=== PATIENT | female | born 1940 | race Caucasian/White ===

== ENCOUNTER → 2016-10-31 | Outpatient (CLI) | payer MEDICARE, BC, OTHER ==
--- NOTE | 2016-11-01 08:41 | XR ---
EXAMINATION TYPE: XR chest 2V DATE OF EXAM: 10/31/2016 11:02 AM COMPARISON: NONE HISTORY: Cough TECHNIQUE: Frontal and lateral views of the chest are obtained. FINDINGS: There are prominent lung volumes. Interstitium is somewhat increased. Cardiac mediastinal silhouette, pulmonary vascularity and tim within normal limits accounting for patient rotation. No a irspace disease, pneumothorax, or pleural effusion. IMPRESSION: Findings suggest COPD, there may be interstitial lung disease, consider chest CT.
== END | disposition home or self-care (01) ==
LOC: RADXRYALE 10:46
PROVIDERS: ATTEND Internal Medicine
DX: R05 Cough (principal)
CPT/HCPCS: 71020

== ENCOUNTER → 2016-11-15 | Outpatient (CLI) | payer MEDICARE, BC, OTHER ==
[2016-11-15 07:42] LABS: Blood Urea Nitrogen 8 mg/dL (7-17); Non-African American GFR(MDRD) >60 (>60 ml/min/1.73 sqM)
--- NOTE | 2016-11-15 08:41 | CT ---
EXAMINATION TYPE: CT chest w con DATE OF EXAM: 11/15/2016 8:19 AM COMPARISON: CT abdomen 09/01/2010 HISTORY: 76-year-old female cough, COPD TECHNIQUE: Contiguous axial scanning of the chest after the administration of 100 mL of Omnipaque 300 . Coronal/sagittal reconstructions performed. CT DLP: 207.3mGycm. Automatic exposure control utilized for a dose reduction. FINDINGS: The heart is normal size without pericardial effusion. Coronary vessel calcifications are present and unremarkable for coronary artery disease. Mild atherosclerotic arch calcifications with conventional arch vessel branching anatomy. There is borderline to mildly dilated caliber to the right main pulmonary artery and 2.6 cm which may reflect underlying pulmonary artery hypertension. Some borderline to mildly enlarged mediastinal lymph nodes are present, measuring 1.1 cm in the AP wi ndow, 1.4 cm and the right hilum, 1 cm at the right tracheobronchial angle, and 9 mm in the precarina l region. Incidental calcified 9 mm right thyroid nodule. There is mild diffuse bronchial wall thickening and mild to moderate centrilobular emphysema. Biapica l pleural parenchymal scarring and some subpleural nodularity at the peripheral right base, axial curt ge 42 and 43 measuring up to 5 mm. No consolidation or pleural effusion. There are some reticular den sities in both lower lungs suggestive of interstitial scarring. Visualized upper abdomen shows no gross abnormality. Bones: Mild superior endplate compression deformity of T11 appears chronic when correlated with CT of 09/01/2010. Additional inferior endplate Schmorl's node of T9 and mild superior endplate compression deformity of T8 also probably chronic given the lack of any paravertebral soft tissue abnormality. IMPRESSION: 1. COPD with mild to moderate emphysema. 2. Possible underlying pulmonary arterial hypertension given borderline to mild dilatation of the rig ht main pulmonary artery. 3. Nonenlarged and borderline to mildly enlarged mediastinal and right hilar lymph nodes measuring up to 1.4 cm. These are probably reactive/post inflammatory and can be reassessed in 6 months to ensure stability. 4. A couple subpleural pulmonary nodules at the right base measuring up to 5 mm. 6, 12, and 24 month follow-up exams are recommended to ensure stability and a benign etiology. 5. Some interstitial scarring at the lung bases.
== END | disposition home or self-care (01) ==
LOC: RADCTMAIN 07:04
PROVIDERS: ATTEND Internal Medicine
DX: J43.9 Emphysema, unspecified (principal); I28.1 Aneurysm of pulmonary artery; R91.1 Solitary pulmonary nodule; J98.4 Other disorders of lung
CPT/HCPCS: 82565; 84520; 71260; 36415; Q9967

== ENCOUNTER → 2016-12-11 | Outpatient (CLI) | payer MEDICARE, BC, OTHER ==
--- NOTE | 2016-12-12 12:36 | XR ---
EXAMINATION TYPE: XR foot complete RT DATE OF EXAM: 12/11/2016 12:14 PM COMPARISON: NONE HISTORY: Pain and bruising lateral foot TECHNIQUE: Three views are submitted. FINDINGS: The osseous structures are intact and severe narrowing and hypertrophic change first MTP. Correlate f or bunion and severe osteoarthritis. Mild diffuse osteopenia.. There is no acute fracture or disloca tion. IMPRESSION: 1. No acute fracture or dislocation. If symptoms persist, follow-up exam in 7 to 10 days could be ob tained. 2. 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
== END ==
LOC: RADXRYALE 12:01
PROVIDERS: ATTEND Internal Medicine
DX: M19.071 Primary osteoarthritis, right ankle and foot (principal); M21.611 Bunion of right foot

== ENCOUNTER 2017-04-07 09:28 | Emergency (ER) | payer MEDICARE, OTHER ==
[2017-04-07 09:34] VITALS: RESP 20; TEMP 99
[2017-04-07] MEDS ORDERED: ONDANSETRON 4 MG/2 ML VIAL IVP STA (09:47)
[2017-04-07] MEDS ORDERED: MORPHINE SULFATE 4 MG/ML SYRINGE IV STA (09:47)
[2017-04-07] MEDS ORDERED: SODIUM CHLORIDE 0.9% 500 ML IV STA (09:47)
--- NOTE | 2017-04-07 09:52 | ED ---
General Adult HPI - General Chief complaint: Back Pain/Injury Stated complaint: back/rib pain Time Seen by Provider: 04/07/17 09:40 Source: patient, RN notes reviewed Mode of arrival: ambulatory Limitations: no limitations - History of Present Illness Initial comments: 76-year-old female presents emergency Department with chief complaint of back pain. Patient states her last few days she's had increase in back pain that starts from her mid back to her lower back. Patient does admit to chronic back pain in which she gets injections and takes pain medication for secondary degenerative disc disease. Patient states that she did more lawn and cleaning her house and took care of somebody but does not remember causing any significant injury. She states the pain seems different than usual. She states goes along her lower ribs and is worse with deep inspiration. She does have chronic shortness of breath secondary to COPD has been on increased steroids. Patient has fever, chills, nausea, vomiting diarrhea. She does admit to being slightly constipated and usually is from her pain medication. Patient denies any dysuria hematuria. She states pain is worse with movement. - Related Data Allergies Allergy/AdvReac Type Severity Reaction Status Date / Time levofloxacin [From Levaquin] Allergy Unknown Verified 04/07/17 10:44 Review of Systems ROS Statement: Those systems with pertinent positive or pertinent negative responses have been documented in the HPI. ROS Other: All systems not noted in ROS Statement are negative. Past Medical History Past Medical History: COPD Additional Past Medical History / Comment(s): DDD History of Any Multi-Drug Resistant Organisms: None Reported Additional Past Surgical History / Comment(s): cataracts removed Past Psychological History: No Psychological Hx Reported Smoking Status: Current every day smoker Past Alcohol Use History: None Reported Past Drug Use History: None Reported General Exam Limitations: no limitations General appearance: alert, in no apparent distress Head exam: Present: atraumatic, normocephalic, normal inspection Neck exam: Present: normal inspection, full ROM. Absent: tenderness, meningismus, lymphadenopathy Respiratory exam: Present: normal lung sounds bilaterally. Absent: respiratory distress, wheezes, rales, rhonchi, stridor, chest wall tenderness Cardiovascular Exam: Present: regular rate, normal rhythm, normal heart sounds. Absent: systolic murmur, diastolic murmur, rubs, gallop, clicks GI/Abdominal exam: Present: soft, normal bowel sounds. Absent: distended, tenderness, guarding, rebound, rigid Back exam: Present: full ROM, paraspinal tenderness. Absent: tenderness (Mild tenderness to the thoracic lumbar region patient reports the pain feels deeper than superficial), CVA tenderness (R), CVA tenderness (L), vertebral tenderness Neurological exam: Present: alert, oriented X3, CN II-XII intact Skin exam: Present: warm, dry, intact, normal color. Absent: rash Course Vital Signs 04/07/17 09:31 Temperature 99.0 F Pulse Rate 89 Respiratory 20 Rate Blood Pressure 194/91 O2 Sat by Pulse 98 Oximetry EKG Findings - EKG Comments: EKG Findings:: EKG performed at 10:24 sinus rhythm with PAC rate of 70 MO interval 156 QRS duration 90 QT/QTC 384/414 Medical Decision Making - Medical Decision Making 76-year-old female presented for back pain, rib pain. Patient's lab work revealed mild elevation her d-dimer CT does not show any evidence of PE. Patient's x-ray of the thoracic spine shows wedge compression fracture of T11. She states she has no history of this. Patient does currently take pain medications though she'll be referred to Dr. Franco her orthopedic back specialist. - Lab Data Result diagrams: 04/07/17 10:40 04/07/17 10:40 Lab Results 04/07/17 04/07/17 04/07/17 Range/Units 10:40 10:40 10:40 WBC 7.6 (3.8-10.6) k/uL RBC 4.46 (3.80-5.40) m/uL Hgb 13.5 (11.4-16.0) gm/dL Hct 40.5 (34.0-46.0) % MCV 90.9 (80.0-100.0) fL MCH 30.4 (25.0-35.0) pg MCHC 33.4 (31.0-37.0) g/dL RDW 13.5 (11.5-15.5) % Plt Count 209 (150-450) k/uL Neutrophils % 74 % Lymphocytes % 17 % Monocytes % 5 % Eosinophils % 2 % Basophils % 0 % Neutrophils # 5.6 (1.3-7.7) k/uL Lymphocytes # 1.3 (1.0-4.8) k/uL Monocytes # 0.4 (0-1.0) k/uL Eosinophils # 0.1 (0-0.7) k/uL Basophils # 0.0 (0-0.2) k/uL D-Dimer 0.87 H (<0.60) mg/L FEU Sodium 134 L (137-145) mmol/L Potassium 4.1 (3.5-5.1) mmol/L Chloride 104 (98-107) mmol/L Carbon Dioxide 22 (22-30) mmol/L Anion Gap 8 mmol/L BUN 7 (7-17) mg/dL Creatinine 0.46 L (0.52-1.04) mg/dL Est GFR (MDRD) Af Amer >60 (>60 ml/min/1.73 sqM) Est GFR (MDRD) Non-Af >60 (>60 ml/min/1.73 sqM) Glucose 92 (74-99) mg/dL Calcium 8.8 (8.4-10.2) mg/dL Total Bilirubin 0.3 (0.2-1.3) mg/dL AST 30 (14-36) U/L ALT 31 (9-52) U/L Alkaline Phosphatase 62 (38-126) U/L Troponin I (0.000-0.034) ng/mL Total Protein 6.1 L (6.3-8.2) g/dL Albumin 3.8 (3.5-5.0) g/dL Lipase 80 (23-300) U/L Urine Color Urine Appearance (Clear) Urine pH (5.0-8.0) Ur Specific [place] (1.001-1.035) Urine Protein (Negative) Urine Glucose (UA) (Negative) Urine Ketones (Negative) Urine Blood (Negative) Urine Nitrite (Negative) Urine Bilirubin (Negative) Urine Urobilinogen (<2.0) mg/dL Ur Leukocyte Esterase (Negative) 04/07/17 04/07/17 Range/Units 10:40 10:40 WBC (3.8-10.6) k/uL RBC (3.80-5.40) m/uL Hgb (11.4-16.0) gm/dL Hct (34.0-46.0) % MCV (80.0-100.0) fL MCH (25.0-35.0) pg MCHC (31.0-37.0) g/dL RDW (11.5-15.5) % Plt Count (150-450) k/uL Neutrophils % % Lymphocytes % % Monocytes % % Eosinophils % % Basophils % % Neutrophils # (1.3-7.7) k/uL Lymphocytes # (1.0-4.8) k/uL Monocytes # (0-1.0) k/uL Eosinophils # (0-0.7) k/uL Basophils # (0-0.2) k/uL D-Dimer (<0.60) mg/L FEU Sodium (137-145) mmol/L Potassium (3.5-5.1) mmol/L Chloride (98-107) mmol/L Carbon Dioxide (22-30) mmol/L Anion Gap mmol/L BUN (7-17) mg/dL Creatinine (0.52-1.04) mg/dL Est GFR (MDRD) Af Amer (>60 ml/min/1.73 sqM) Est GFR (MDRD) Non-Af (>60 ml/min/1.73 sqM) Glucose (74-99) mg/dL Calcium (8.4-10.2) mg/dL Total Bilirubin (0.2-1.3) mg/dL AST (14-36) U/L ALT (9-52) U/L Alkaline Phosphatase (38-126) U/L Troponin I <0.012 (0.000-0.034) ng/mL Total Protein (6.3-8.2) g/dL Albumin (3.5-5.0) g/dL Lipase (23-300) U/L Urine Color Light Yellow Urine Appearance Clear (Clear) Urine pH 7.0 (5.0-8.0) Ur Specific [place] 1.002 (1.001-1.035) Urine Protein Negative (Negative) Urine Glucose (UA) Negative (Negative) Urine Ketones Negative (Negative) Urine Blood Negative (Negative) Urine Nitrite Negative (Negative) Urine Bilirubin Negative (Negative) Urine Urobilinogen <2.0 (<2.0) mg/dL Ur Leukocyte Esterase Negative (Negative) Disposition Clinical Impression: Thoracic compression fracture Disposition: HOME SELF-CARE Condition: Stable Instructions: Vertebral Compression Fracture (ED) Additional Instructions: Please return to the Emergency Department if symptoms worsen or any other concerns. Referrals: Lizzeth Farris MD [Primary Care Provider] - 1-2 days Time of Disposition: 12:42
[2017-04-07 10:52] LABS: Appearance,Urine Clear (Clear); Bilirubin,Urine Negative (Negative); Glucose,Urine (UA) Negative (Negative); Ketones,Urine Negative (Negative); Leukocyte Esterase,Urine Negative (Negative); Nitrite,Urine Negative (Negative); Protein,Urine Negative (Negative); Specific Gravity,Urine 1.002 (1.001-1.035); UA Billing (MACRO vs. MICRO) CHEM; Urobilinogen,Urine <2.0 mg/dL (<2.0)
[2017-04-07 10:53] LABS: Basophils % (A) 0 %; CH 30.8; Eosinophils # (A) 0.1 k/uL (0-0.7); Eosinophils % (A) 2 %; HCT 40.5 % (34.0-46.0); HDW 2.31; HGB 13.5 gm/dL (11.4-16.0); Luc # (Auto) 0.13; Luc % (Auto) 2; Lymphocytes # (A) 1.3 k/uL (1.0-4.8); Lymphocytes % (A) 17 %; MCH 30.4 pg (25.0-35.0); MCHC 33.4 g/dL (31.0-37.0); MCV 90.9 fL (80.0-100.0); Mean Platelet Volume 7.5; Monocytes # (A) 0.4 k/uL (0-1.0); Monocytes % (A) 5 %; Neutrophils # (A) 5.6 k/uL (1.3-7.7); Neutrophils % (A) 74 %; RBC 4.46 m/uL (3.80-5.40); RDW 13.5 % (11.5-15.5); WBC 7.6 k/uL (3.8-10.6)
[2017-04-07 11:05] LABS: ALT 31 U/L (9-52); AST 30 U/L (14-36); Alkaline Phosphatase 62 U/L (38-126); Anion Gap 8 mmol/L; Blood Urea Nitrogen 7 mg/dL (7-17); Calcium 8.8 mg/dL (8.4-10.2); Carbon Dioxide 22 mmol/L (22-30); Chloride 104 mmol/L (98-107); Glucose 92 mg/dL (74-99); Non-African American GFR(MDRD) >60 (>60 ml/min/1.73 sqM); Potassium 4.1 mmol/L (3.5-5.1); Sodium 134 mmol/L (137-145); Total Bilirubin 0.3 mg/dL (0.2-1.3); Total Protein 6.1 g/dL (6.3-8.2)
--- NOTE | 2017-04-07 11:17 | XR ---
EXAMINATION TYPE: XR thoracic spine 2V , 3 VIEWS DATE OF EXAM ORDERED: 04/07/2017 HISTORY: Pain. COMPARISON: None. FINDINGS: There is diffuse osteopenia likely on the basis of osteoporosis. There is mild wedging of the T11 vertebral body. The age of this is not determined. 2 body height and alignment are otherwise unremarkable. This hypertrophic spondylosis within the mid dorsal spine. Paraspinal soft tissues are normal. The pedicles appear intact. IMPRESSION: 1. DIFFUSE OSTEOPENIA. 2. MILD WEDGE COMPRESSION FRACTURE T11. 3. DEGENERATIVE HYPERTROPHIC SPONDYLOSIS.
--- NOTE | 2017-04-07 11:18 | XR ---
EXAMINATION TYPE: XR KUB , 2 VIEWS DATE OF EXAM ORDERED: 04/07/2017 HISTORY: Pain. COMPARISON: None. FINDINGS: The lung bases are clear. The abdominal gas pattern is within normal limits. There is no evidence of obstruction or free air. N o unusual calcifications are seen. There is moderate fecal stasis on the right. IMPRESSION: 1. NO ACUTE INTRA-ABDOMINAL ABNORMALITY. 2. CONSTIPATION.
--- NOTE | 2017-04-07 11:19 | XR ---
EXAMINATION TYPE: XR chest 2V DATE OF EXAM: 04/07/2017 HISTORY: pain. REFERENCE: Previous study dated 10/31/2016. FINDINGS: Lung volumes are mildly prominent. There is some chronic interstitial change. There is no p neumonia or edema. The heart is not enlarged. Pleural spaces are clear. IMPRESSION: COPD.
[2017-04-07] MEDS ORDERED: RX INFO: IV CONTRAST WAS GIVEN 1 EACH MISC MISCELLANE PRN (11:31)
--- NOTE | 2017-04-07 12:35 | CT ---
EXAMINATION TYPE: CT chest angio for PE DATE OF EXAM: 04/07/2017 COMPARISON: NONE HISTORY: Mid back pain CT DLP: 180.1 mGycm Automated exposure control for dose reduction was used. CONTRAST: CT Chest for pulmonary embolism performed with with IV Contrast, patient injected with 63 mL of Omnip aque 350. FINDINGS: There is apical scarring bilaterally, worse on the left than the right. There are diffuse e mphysematous changes throughout the lungs. There is mild interstitial change at the lung bases. There is no significant axillary or internal mammary lymph nodes. There are shotty mediastinal lymph nodes. There are some right hilar lymph nodes which are not pathologically enlarged. There is no evidence of pulmonary embolus. The aorta is normal in caliber without evidence of dissect ion. The heart is mildly enlarged. There is no pleural or pericardial fluid. Visualized portions of the upper abdomen are unremarkable. There is minimal hypertrophic spondylosis within the spine. No bony destructive lesion is seen. IMPRESSION: 1. This examination is negative for pulmonary embolus. 2. Emphysematous change. 3. Biapical scarring, worse on the left than the right. 4. Cardiomegaly.
[2017-04-07 13:04] VITALS: BP 160/73; PULSE 73
== END 2017-04-07 13:04 | disposition home or self-care (01) ==
LOC: EC 09:28
DX: S22.080A Wedge compression fracture of T11-T12 vertebra, initial encounter for closed fracture (principal); R06.02 Shortness of breath; F17.200 Nicotine dependence, unspecified, uncomplicated; Z88.1 Allergy status to other antibiotic agents
CPT/HCPCS: 36415; 93005; 85379; 80053; 83690; 84484; 85025; 81003; 72070; 71020; 74000; 71275; 99284; 96374; 96375; 96361 ×2; J2270; Q9967; J2405

== ENCOUNTER → 2017-04-11 | Outpatient (CLI) | payer MEDICARE, OTHER ==
--- NOTE | 2017-04-11 14:22 | NM ---
EXAMINATION TYPE: NM bone scan whole body DATE OF EXAM: 04/11/2017 COMPARISON: CT chest 04/07/2017, thoracic spine series 04/07/2017, lumbar spine series 04/18/2016 HISTORY: Back pain Delayed whole-body scanning was performed following the injection of 26.8 mCi Tc 99m MDP. Images acq uired 3 hours post injection. TECHNIQUE: Anterior and posterior full body images bilateral oblique views of the thoracic and lumbar spine pain . Lateral views of the thoracic spine. FINDINGS: There is a focus of increased abnormal uptake involving the right lower rib cage compatible with prev ious fracture. There is a curvature of the thoracolumbar spine compatible with scoliotic curvature. Abnormal uptake involving the right mandible is nonspecific may been the basis of periodontal disease correlate clinically to exclude other etiologies. There is abnormal uptake faintly throughout the upper thoracic and lower cervical spine compatible wi th degenerative disc disease. There is a linear area of abnormal uptake at the approximate level of T 10 which could be related to compression fracture or severe degenerative disc disease. Abnormal uptake at L4-5 and L5-S1 likely is degenerative. Abnormal uptake involving the SI joints inf eriorly likely post arthritic. Abnormal uptake involving the knees and feet, wrists and hands, and shoulders likely arthritic. More intense area of abnormal uptake involving the left scapula could be posttraumatic. Correlate with x-r ay. IMPRESSION: 1. Multilevel areas of abnormal uptake throughout the lower cervical, thoracic and lower lumbar spine which appears to be degenerative. More linear pattern of uptake at the T10 level could be on the bas is of a compression deformity or fracture. Groins with the recent CT scan of the superior endplate co mpression deformity. 2. Abnormal uptake involving the right mandible nonspecific most likely on the basis of periodontal d isease. X-ray correlation could be obtained. 3. Abnormal uptake involving the left scapula likely post arthritic but appears somewhat diffuse in p attern. Correlate with x-ray.
== END | disposition home or self-care (01) ==
LOC: RADNMMAIN 10:43
PROVIDERS: ATTEND Physical Medicine & Rehabilitation
DX: M47.817 Spondylosis without myelopathy or radiculopathy, lumbosacral region (principal)
CPT/HCPCS: 78306; A9503

== ENCOUNTER → 2018-03-15 | Outpatient (CLI) | payer MEDICARE, OTHER ==
--- NOTE | 2018-03-15 10:20 | MR ---
EXAMINATION TYPE: MR shoulder RT wo con DATE OF EXAM: 03/15/2018 10:13 AM COMPARISON: NONE HISTORY: Rt. shoulder pain TECHNIQUE: Multiplanar, multisequence imaging of the right shoulder is performed without contrast. FINDINGS: The study suffers from motion artifact. There is no evidence of an os acromiale. There are moderate hypertrophic and inflammatory changes inv olving the right AC joint. The acromion is neutral. There is an incomplete full-thickness tear involving the posterior fibers of the supraspinatus tendon . There is no significant muscular retraction. Infraspinatus tendon and subscapularis tendons appear intact. There is some osseous edema involving the humeral head adjacent to the glenoid. The superior glenoid labrum appears swollen and has abnormal signal. Definite labral tear is not seen. There is a moderate joint effusion. The biceps tendon is not visualized within the biceps tendon groove or intra-articularly. IMPRESSION: 1. INCOMPLETE FULL-THICKNESS TEAR OF THE POSTERIOR FIBERS OF THE SUPRASPINATUS TENDON. 2. NONVISUALIZATION OF THE BICEPS TENDON WITHIN THE BICEPS TENDON GROOVE OR IN ITS INTRA-ARTICULAR CO URSE SUGGEST BICEPS TENDON RUPTURE WITH RETRACTION. 3. ABNORMAL APPEARING CYST SUPERIOR GLENOID LABRUM WHICH APPEARS SWOLLEN AND HAS ABNORMAL SIGNAL. 4. PROMINENT JOINT EFFUSION. 5. MODERATE INFLAMMATORY HYPERTROPHIC CHANGES WITHIN THE RIGHT AC JOINT.
== END | disposition home or self-care (01) ==
LOC: RADMRIMAIN 08:58
PROVIDERS: ATTEND Internal Medicine Rheumatology
DX: M75.111 Incomplete rotator cuff tear or rupture of right shoulder, not specified as traumatic (principal); M25.811 Other specified joint disorders, right shoulder

== ENCOUNTER → 2018-03-20 | Outpatient (CLI) | payer MEDICARE, OTHER ==
--- NOTE | 2018-03-20 13:18 | XR ---
Left RIBS with PA chest x-ray HISTORY: Left rib pain Frontal view of the chest 4 views of the left ribs correlated to prior chest x-ray 04/07/2017, 7 Cardiac mediastinal silhouette, pulmonary vascularity and tim are stable. Aorta is dense. No evident pneumothorax or pleural effusion. Arthropathy noted in the left shoulder. Interstitium is mildly inc reased. Prominent lung volume may be indicative of COPD. The bone mineralization is reduced. Cortical irregularity noted at the anterior aspect of one of the lower ribs, nondisplaced fracture difficult to exclude IMPRESSION: Bone scan may be of increased sensitivity as indicated, difficult to exclude nondisplaced fracture. No acute cardiopulmonary disease.
== END | disposition home or self-care (01) ==
LOC: RADXRYALE 09:09
PROVIDERS: ATTEND Internal Medicine
DX: R07.81 Pleurodynia (principal)

== ENCOUNTER → 2018-11-10 | Outpatient (CLI) | payer MEDICARE, OTHER ==
--- NOTE | 2018-11-10 16:35 | XR ---
EXAMINATION TYPE: XR thoracic spine complete DATE OF EXAM: 11/10/2018 CLINICAL HISTORY: Stabbing pain for 4 days. TECHNIQUE: Frontal, lateral, and swimmer's view of thoracic spine are obtained. COMPARISON: Thoracic spine x-ray April 07, 2017. FINDINGS: Osseous structures are demineralized Thoracic spine show slight scoliotic curvature without evidence of acute fracture or dislocation. Mild multilevel height loss is present in the vertebra mi ld to moderate multilevel disc space narrowing is seen. Visualized ribs are intact bilaterally. IMPRESSION: No acute fracture or dislocation is seen in the thoracic spine. No significant change fro m prior study 2016.
== END | disposition home or self-care (01) ==
LOC: RADXRYALE 15:27
PROVIDERS: ATTEND Internal Medicine
DX: M54.6 Pain in thoracic spine (principal)
CPT/HCPCS: 72072

== ENCOUNTER → 2018-11-20 | Outpatient (CLI) | payer MEDICARE, OTHER ==
[2018-11-20 14:26] LABS: Blood Urea Nitrogen 11 mg/dL (7-17)
--- NOTE | 2018-11-20 14:59 | CT ---
EXAMINATION TYPE: CT chest w con DATE OF EXAM: 11/20/2018 COMPARISON: 11/15/2016 and 04/07/2017 HISTORY: COPD. Cough. Follow-up for pulmonary nodules and lymph nodes. Centrilobular emphysema. CT DLP: 246.4 mGycm. Automated Exposure Control for Dose Reduction was Utilized. TECHNIQUE: CT scan of the thorax is performed following with IV Contrast, patient injected with 100 mL of Isovue 300. FINDINGS: LUNGS: There is biapical pleural parenchymal scarring noted. Mild to moderate centrilobular emphysema is seen most pronounced in the lung apices. The previously seen diffuse bronchial wall thickening is less conspicuous on today's exam. No sizable pulmonary nodules persist. MEDIASTINUM: The previously noted 1.4 cm short axis right hilar lymph node now measures 1.2 cm and is likely reactive. The aorticopulmonary window lymph node that was enlarged on the exam of 11/15/2016 i s no longer enlarged. The main pulmonary artery is upper limits of normal measuring 2.9 cm in the rig ht main pulmonary artery is enlarged measuring 2.6 cm. Left main pulmonary artery is also enlarged me asuring 2.5 cm. Pulmonary arterial hypertension is suggested. Moderate coronary artery calcifications are seen. No pericardial effusion is seen. OTHER: There is a nonunited fracture deformities of the fifth rib on the right. And healed fractures of the lateral margins of ribs 3 and 4 on the right. Mild multilevel degenerative changes of the spin e are seen. Superior endplate compression deformity of T11 is unchanged from the prior. Slight compre ssion deformity of T8 is also unchanged from the prior. IMPRESSION: 1. Mild to moderate centrilobular emphysema has not progressed from the prior of 11/15/2016 radiograph ically. 2. The subpleural less than 5 mm pulmonary nodule seen on the prior are no longer evident and may hav e related to atelectasis. No suspicious pulmonary nodules or masses on today's examination. 3. Improved caliber of the previously seen enlarged mediastinal lymph nodes with only 1 mildly enlarg ed mediastinal lymph node remaining, likely reactive. 4. Again there is mild enlargement of the right and left main pulmonary artery suggesting a component of underlying pulmonary arterial hypertension.
== END | disposition home or self-care (01) ==
LOC: RADCTMAIN 13:49
PROVIDERS: ATTEND Internal Medicine
DX: J43.2 Centrilobular emphysema (principal); J98.11 Atelectasis; I28.8 Other diseases of pulmonary vessels
CPT/HCPCS: 82565; 84520; 71260; 36415; Q9967

== ENCOUNTER → 2018-12-19 | Outpatient (CLI) | payer MEDICARE, OTHER ==
--- NOTE | 2018-12-19 14:40 | NM ---
EXAMINATION TYPE: NM bone scan whole body DATE OF EXAM: 12/19/2018 COMPARISON: Bone scan 04/11/2017, outside x-rays 12/18/2018 HISTORY: Pain Delayed whole-body scanning was performed following the injection of 25.6 mCi Tc 99m MDP. Images acq uired 3.5 hours post injection. FINDINGS: There is intense abnormal uptake in the level of the mid thoracic spine which corresponds t o a mild compression deformity on x-ray. Mild increased uptake throughout the remaining portion of th e thoracic and cervical spine noted which is nonspecific but most typical of post degenerative disc d isease changes. Abnormal uptake involving the knees and shoulders likely post arthritic. There is a more focal intens e abnormal uptake involving the left glenoid for which x-ray correlation suggested. Abnormal uptake involving the hands and wrist likely post arthritic. IMPRESSION: 1. Intense abnormal uptake in the midthoracic spine does correspond to a compression deformity seen b y previous x-ray correlate for compression fracture. Otherwise consider metastases. 2. Residual mild uptake throughout the thoracic, cervical and lumbar spine is most likely degenerativ e. 3. Intense abnormal uptake involving the left glenoid. X-ray correlation is recommended.
== END | disposition home or self-care (01) ==
LOC: RADNMMAIN 10:15
PROVIDERS: ATTEND Physical Medicine & Rehabilitation
DX: R94.8 Abnormal results of function studies of other organs and systems (principal); M48.54XD Collapsed vertebra, not elsewhere classified, thoracic region, subsequent encounter for fracture with routine healing; M47.814 Spondylosis without myelopathy or radiculopathy, thoracic region; M41.25 Other idiopathic scoliosis, thoracolumbar region
CPT/HCPCS: 78306; A9503

== ENCOUNTER → 2019-02-06 | Outpatient (CLI) | payer MEDICARE, OTHER ==
[2019-02-06 11:32] LABS: Appearance,Urine Clear (Clear); Bilirubin,Urine Negative (Negative); Blood,Urine Negative (Negative); Color,Urine Yellow; Glucose,Urine (UA) Negative (Negative); Ketones,Urine Negative (Negative); Leukocyte Esterase,Urine Negative (Negative); Nitrite,Urine Negative (Negative); PH, Urine 7.5 (5.0-8.0); Protein,Urine Negative (Negative); Specific Gravity,Urine 1.016 (1.001-1.035); Urobilinogen,Urine <2.0 mg/dL (<2.0)
--- NOTE | 2019-02-06 11:40 | XR ---
EXAMINATION TYPE: XR chest 2V DATE OF EXAM: 02/06/2019 COMPARISON: 08/09/2017 TECHNIQUE: PA and lateral views submitted. HISTORY: Pain FINDINGS: The lungs are clear and there is no pneumothorax, pleural effusion, or focal pneumonia. Hyperinflat ion suggests COPD. Atherosclerotic change aorta. Diffuse osteopenia and arthropathy of the shoulders. Biapical pleural thickening. Degenerative changes of the spine. IMPRESSION: 1. No acute process. Correlate for COPD.
[2019-02-06 11:51] LABS: INR 0.9 (<1.2); Partial Thromboplastin Time 22.3 sec (22.0-30.0); Prothrombin Time 9.5 sec (9.0-12.0)
[2019-02-06 11:59] LABS: Anion Gap 6 mmol/L; Blood Urea Nitrogen 10 mg/dL (7-17); Calcium 9.3 mg/dL (8.4-10.2); Carbon Dioxide 29 mmol/L (22-30); Chloride 102 mmol/L (98-107); Glucose 97 mg/dL (74-99); Potassium 4.2 mmol/L (3.5-5.1); Sodium 137 mmol/L (137-145)
[2019-02-06 12:01] LABS: Basophils # (A) 0.1 k/uL (0-0.2); Basophils % (A) 0 %; Eosinophils # (A) 0.1 k/uL (0-0.7); Eosinophils % (A) 1 %; HCT 43.1 % (34.0-46.0); HGB 13.5 gm/dL (11.4-16.0); Lymphocytes # (A) 1.8 k/uL (1.0-4.8); Lymphocytes % (A) 15 %; MCH 28.2 pg (25.0-35.0); MCHC 31.4 g/dL (31.0-37.0); MCV 89.7 fL (80.0-100.0); Mean Platelet Volume 7.6; Monocytes # (A) 0.6 k/uL (0-1.0); Monocytes % (A) 5 %; Neutrophils # (A) 9.1 k/uL (1.3-7.7); Neutrophils % (A) 77 %; Platelet Count 300 k/uL (150-450); RDW 13.7 % (11.5-15.5); WBC 11.7 k/uL (3.8-10.6)
== END ==
LOC: LABPAT 10:15
PROVIDERS: ATTEND Orthopaedic Surgery Orthopaedic Surgery of the Spine
DX: Z01.818 Encounter for other preprocedural examination (principal); Z01.812 Encounter for preprocedural laboratory examination; M48.50XA Collapsed vertebra, not elsewhere classified, site unspecified, initial encounter for fracture
CPT/HCPCS: 36415; 71046; 80048; 81003; 85025; 85610; 85730; 86850; 86900; 86901

== ENCOUNTER 2019-02-11 10:33 | Day surgery (SDC) | payer MEDICARE, OTHER ==
[2019-02-06 13:25] VITALS: BMI 24.1
[~2019-02-11 10:33] MED LIST: BACITRACIN 50,000 UNIT, POLYMYXIN B 500,000 UNIT in SODIUM CHLORIDE 0.9% IRRIGATIO 1,00... IRRIGATION ONE; LACTATED RINGERS 1,000 ML IV SCH; LIDOCAINE 1% 20 ML VIAL (10MG/ML) FOR IV START INTRADERMA PRN; ONDANSETRON 4 MG/2 ML VIAL IVP ONE; ceFAZolin IN SWFI 2 GM/20 ML SYRINGE IVP ONE; fentaNYL (PF) 50 MCG/ML 2 ML AMP IV PRN
[2019-02-11 11:19] VITALS: RESP 18
[2019-02-11] MEDS ORDERED: GLYCOPYRROLATE 0.2 MG/ML 2 ML VIAL ONE (14:49)
[2019-02-11] MEDS ORDERED: PROPOFOL 10 MG/ML 20 ML VIAL IV ONE (14:49)
[2019-02-11] MEDS ORDERED: SUCCINYLCHOLINE CHLORIDE 100 MG/5 ML SYR IV ONE (14:49)
[2019-02-11] MEDS ORDERED: MIDAZOLAM 2 MG/2 ML VIAL ONE (14:49)
[2019-02-11] MEDS ORDERED: PHENYLEPHRINE-0.9% NACL SYG 1 MG/10 ML SYRINGE ONE (14:49)
[2019-02-11] MEDS ORDERED: ePHEDrine SULFATE/0.9% NACL/PF 50 MG/5 ML SYRINGE IV ONE (14:49)
[2019-02-11] MEDS ORDERED: fentaNYL (PF) 50 MCG/ML 2 ML AMP ONE (14:49)
[2019-02-11] MEDS ORDERED: LIDOCAINE 0.5%-EPI 1:200,000 50 ML VIAL SQ ONE (15:35)
[2019-02-11] MEDS ORDERED: BENZOCAINE/MENTHOL LOZENG 1 EACH LOZENGE MUCOUS MEM PRN (16:09)
[2019-02-11] MEDS ORDERED: HYDROmorphone 0.5 MG/0.5 ML SYRINGE IVP PRN (16:09)
[2019-02-11] MEDS ORDERED: LACTATED RINGERS 1,000 ML IV ONE (16:09)
[2019-02-11] MEDS ORDERED: IBUPROFEN 600 MG TAB PO PRN (16:10)
[2019-02-11] MEDS ORDERED: ONDANSETRON 4 MG/2 ML VIAL IVP PRN (16:10)
[2019-02-11] MEDS ORDERED: HYDROcodone/APAP 5-325MG 1 EACH TAB PO PRN (16:10)
[2019-02-11] MEDS ORDERED: KETOROLAC 30 MG/ML 1 ML VIAL IVP PRN (16:10)
[2019-02-11] MEDS ORDERED: CANNABIDIOL PO PRN (16:12)
[2019-02-11] MEDS ORDERED: SODIUM CHLORIDE 0.9% 1,000 ML IV SCH (16:15)
--- NOTE | 2019-02-11 16:18 | P.OP ---
Date of Procedure: 02/11/19 Preoperative Diagnosis: T5 osteoporotic compression fracture, thoracic back pain, failed conservative treatment, progression of compression fracture deformity T5 Postoperative Diagnosis: Same Anesthesia: GETA Pathology: other (T5 vertebral body to pathology) Condition: stable Disposition: PACU Description of Procedure: BRIEF OPERATIVE NOTE Preoperative Diagnosis: Vertebral compression fracture at T5, T5 osteoporotic compression fracture, thoracic back pain, failed conservative treatment, progression of compression fracture deformity T5 Postoperative Diagnosis: Same Procedure: Kyphoplasty of T5 Vertebral body biopsy of T5 Use of biplanar fluoroscopic guidance Surgeon: Dr. Riddle Airplane Navigator: Bjorn Li is present throughout the entire the case persistence during positioning, dissection, exposure, visualization, and all crucial elements of the case as well as closure. Anesthesia: General anesthesia Estimated blood loss: Less than 10 mL Specimen: Vertebral body biopsy sent to pathology in formalin Complications: None apparent Components implanted: Bone cement Disposition: To recovery room in good stable condition. OPERATIVE INDICATIONS The patient has been having issues in their back ever since sustaining an injury. She has been having pain in her mid back and upper back over the past 3 months. She had been through conservative treatment and bracing without any relief. She is found have multiple compression deformities most of which were chronic but T5 appeared to be subacute and continues to give her symptoms. The patient has been through conservative treatment. They attempted conservative care with bracing however they're not having any benefit despite brace use. They continue to have significant pain and debility due to their fracture. We discussed various treatment options including surgery, and the patient wishes to proceed with surgery We discussed the risk, patient's alternatives and benefits of surgery including but not limited to, risk of bleeding risk of infection, risk of need for further surgery, risk of decreased, loss of motion, loss of function, cement extravasation, nerve damage, paralysis, heart attack, blindness and . OPERATIVE SUMMARY After discussing all the risks, patient alternatives and benefits at length, the patient elected to proceed with surgical intervention, signed informed consent, and presented for their procedure. The patient was seen and examined in the preoperative holding area and the surgical site was marked. The patient was given antibiotics and brought to the operating room. The patient was sedated and intubated by anesthesia in standard fashion. The patient was positioned on to the operating room table in a prone position on the appropriate well-padded and well molded bilateral chest rolls. We were careful to pad any bony prominences and pressure points. We were careful to maintain the patient's cervical spine and good neutral alignment and position throughout. We used 2 C-arm machines to establish biplanar fluoroscopic guidance in AP and lateral positions. We were able to localize the fractures appropriately. We counted up from L5 with C-arm guidance and continue to identify vertebral body sequentially until identifying the T5 vertebral body appropriately. The patient was prepped and draped in a normal standard fashion. An appropriate timeout and keystone protocol performed. We were able to proceed with the surgery. The local wound area was infiltrated with local anesthetic. An incision was made over the lateral aspect of the pedicle after positively establishing the appropriate vertebrae with the fracture., over the appropriate levels with a small 2 mm stab incision. Intraoperative fluoroscopy was taken which showed a marker at the appropriate level at T5. With the appropriate level positively confirmed, I was able to position a sharp trocar over the lateral aspect of the pedicle. As able to advance the trocar into the pedicle and into the posterior aspect of vertebral body being careful to avoid penetration cephalad caudad or medially. The trocar was placed appropriately into the posterior aspect of vertebral body at the appropriate levels. This was confirmed with C-arm guidance. With the trocar intact I was then able to take a bone biopsy with a biopsy punch or a bony drill. The biopsy specimen was passed off to be sent to pathology in formalin. Note was made of significantly thin and frail bone. I was then able to place the kyphoplasty balloon within the vertebral body. The position was checked on C-arm. I was able to inflate the balloon under low pressure and visualization with C-arm. The balloon was well enclosed within the vertebral body. The cement was prepared. With the cement at appropriate working condition the balloons were deflated and removed. I was able to place bony cement with trocar with the cement delivery device under low pressure. It had good fill within the vertebral body. There is no evidence of any extravasation of the cement posteriorly toward the canal. The cement had good spread within the vertebral body itself. The cement was well contained at the appropriate levels. The cement was allowed to cure appropriately. The trochars removed and final images were taken on C-arm. This showed the cement at the appropriate level of L5. We were able to proceed with closure. The wound was cleaned and dried and dressed with the appropriate dressing. The drapes were broken down. The patient was gently rolled back onto their hospital bed being careful to maintain their cervical spine and good neutral alignment and position. They were woken up by anesthesia, extubated, and brought to the recovery room in good stable condition. The patient will be admitted to the hospital for observation and for appropriate postoperative care, medical management and monitoring. We will continue to follow them closely about the postoperative course.
[2019-02-11 16:25] VITALS: TEMP 97.1
[2019-02-11 18:20] VITALS: BP 116/69; PULSE 71
[2019-02-12] MEDS ORDERED: ceFAZolin IN SWFI 2 GM/20 ML SYRINGE IVP SCH
[2019-02-12] MEDS ORDERED: NON-FORMULARY DRUG (Benazepril Hcl [Lotensin] 20 MG) PO SCH (09:00)
[2019-02-12] MEDS ORDERED: amLODIPine 10 MG TAB PO SCH (09:00)
[2019-02-12] MEDS ORDERED: ASPIRIN 81 MG PO SCH (09:00)
--- NOTE | 2019-02-12 10:10 | FL ---
Fluoroscopy HISTORY: Kyphoplasty 68 seconds fluoroscopy time supplied to the referring clinician. 4 intraoperative C-arm images docum ent the procedure. See dictated report from orthopedic surgery.
--- NOTE | 2019-02-12 10:19 | XR ---
Thoracic spine HISTORY: Kyphoplasty 4 intraoperative C-arm images document the procedure.
== END 2019-02-11 18:20 | disposition home or self-care (01) ==
LOC: OR 10:33
PROVIDERS: ATTEND Orthopaedic Surgery Orthopaedic Surgery of the Spine
DX: M48.54XA Collapsed vertebra, not elsewhere classified, thoracic region, initial encounter for fracture (principal); I10 Essential (primary) hypertension; H91.90 Unspecified hearing loss, unspecified ear; F17.210 Nicotine dependence, cigarettes, uncomplicated; R26.81 Unsteadiness on feet; M47.817 Spondylosis without myelopathy or radiculopathy, lumbosacral region; Z82.49 Family history of ischemic heart disease and other diseases of the circulatory system; R00.2 Palpitations; R06.02 Shortness of breath; Z97.3 Presence of spectacles and contact lenses; Z79.82 Long term (current) use of aspirin; Z79.899 Other long term (current) drug therapy; Z88.5 Allergy status to narcotic agent; Z91.040 Latex allergy status; Z88.1 Allergy status to other antibiotic agents
CPT/HCPCS: 22513; 88307; 88311; 72020; C1713; J2250; J2405; J3010; J1885; J2370; J0330; J2704; J0690; 86850; 86900; 86901

== ENCOUNTER → 2019-07-15 | Outpatient (CLI) | payer MEDICARE, OTHER ==
--- NOTE | 2019-07-15 13:55 | XR ---
EXAMINATION TYPE: XR ribs LT w pa chest xray DATE OF EXAM: 07/15/2019 COMPARISON: NONE HISTORY: Left rib pain TECHNIQUE: PA view the chest and 4 views of left ribs submitted FINDINGS: Calcification the right paratracheal region likely related to previous vertebroplasty. Line ar changes at the lung bases most typical of atelectasis. Atherosclerotic change of the aorta. Severe arthropathy of the left shoulder. Visualized rib cage is intact. IMPRESSION: 1. No acute displaced rib fracture
== END | disposition home or self-care (01) ==
LOC: RADXRYALE 13:20
PROVIDERS: ATTEND Internal Medicine
DX: R07.81 Pleurodynia (principal)

== ENCOUNTER → 2020-06-28 | Outpatient (CLI) | payer MEDICARE, OTHER ==
--- NOTE | 2020-06-28 19:07 | XR ---
EXAMINATION TYPE: XR shoulder complete LT DATE OF EXAM: 06/28/2020 CLINICAL HISTORY: Left shoulder pain. Increased chronic pain after fall. TECHNIQUE: 2 views of the left shoulder are obtained. COMPARISON: CT chest 11/20/2018. FINDINGS: Decreased osseous mineralization. There is no acute fracture/dislocation evident in the le ft shoulder. There is severe glenohumeral joint space narrowing, with bony remodeling of the humeral head, degenerative spurring. Acromioclavicular degenerative change. The visualized ribs demonstrate no evidence of displaced fracture. IMPRESSION: 1. No acute fracture or dislocation in the left shoulder. 2. Significant glenohumeral and acromioclavicular degenerative change. 3. Decreased osseous mineralization.
--- NOTE | 2020-06-28 19:08 | XR ---
EXAMINATION TYPE: XR knee limited LT DATE OF EXAM: 06/28/2020 CLINICAL HISTORY: Left knee pain. Increased chronic pain after fall. TECHNIQUE: AP and lateral views of the left knee are obtained. COMPARISON: None. FINDINGS: Decreased osseous mineralization. There is no acute fracture/dislocation evident in left k nee. Medial compartment joint space narrowing. Medial compartment and patellofemoral compartment dege nerative spurring. Spurring of the tibial spines. The overlying soft tissue appears unremarkable. IMPRESSION: 1. No acute fracture or dislocation in the left knee. 2. Decreased osseous mineralization. 3. Bicompartmental degenerative change.
== END | disposition home or self-care (01) ==
LOC: RADXRYALE 14:57
PROVIDERS: ATTEND Internal Medicine
DX: M19.012 Primary osteoarthritis, left shoulder (principal); M17.12 Unilateral primary osteoarthritis, left knee

== ENCOUNTER → 2020-09-12 | Outpatient (CLI) | payer MEDICARE, OTHER ==
--- NOTE | 2020-09-12 18:04 | XR ---
Right RIBS HISTORY: Trauma and pain 5 views of the right ribs correlated to chest x-ray 02/06/2019, left RIBS with chest x-ray 07/15/2019 Vertebroplasty change again noted at approximately the T5 level. There is a spinal curvature present. Additional compression deformities are noted in the thoracic spine. Bone mineralization is reduced, the exam is overpenetrated which limits sensitivity. Apical pleural thickening is again noted on the right. No evident displaced rib fracture. There is some scarring present at the right costophrenic angle lev el. IMPRESSION: Thoracic compression deformities of indeterminate age. Limitations as above, bone scan co uld be performed for increased sensitivity as indicated.
== END | disposition home or self-care (01) ==
LOC: RADXRYALE 15:16
PROVIDERS: ATTEND Internal Medicine
DX: G95.29 Other cord compression (principal)

== ENCOUNTER → 2021-08-14 | Outpatient (CLI) | payer MEDICARE, OTHER ==
--- NOTE | 2021-08-14 16:04 | BD ---
EXAMINATION TYPE: Axial Bone Density DATE OF EXAM: 08/14/2021 COMPARISON: NONE CLINICAL HISTORY: Height: 5 FT 3 IN Weight: 129 FRAX RISK QUESTIONS: Alcohol (3 or more units per day): NO Family History (Parent hip fracture): NO Glucocorticoids (More than 3mos): UNSURE (Ex: prednisone, prednisolone, methylprednisolone, dexamethasone, and hydrocortisone). History of Fracture in Adulthood: YES SPONTANEOUS Secondary Osteoporosis: 1. Type 1 Diabetes: NO 2. Hyperthyroidism: NO 3. Menopause before 45: YES 4. Malnutrition: NO 5. Chronic liver disease: NO Rheumatoid Arthritis: NO Current Tobacco Use: YES RISK FACTORS HISTORY OF: Spine Fracture: STATES SPONTANEOUS FXS IN SPINE Surgery to Spine/Hip(right/left)/Wrist (right/left): TSPINE When: 2018 Family History of Osteoporosis: UNKNOWN Active: NO Diet low in dairy products/other sources of calcium: NO Postmenopausal woman: YES Take estrogen and/or progesterone medications: NO Lost more than 2 inches in height since high school: YES Frequent falls: NO Poor Health: GOOD Hyperparathyroidism: NO Adrenal Insufficiency: NO MEDICATIONS: Additional Medications:NORCO, NORVASC, ASPIRIN, Additional History: EXAM MEASUREMENTS: Bone mineral densitometry was performed using the iCAD System. Bone mineral density as measured about the Lumbar spine is: ----- L1-L4(G/cm2): 0.874 T Score Values are as follows: ----- L2: -3.2 ----- L3: -2.0 ----- L4: -2.7 ----- L1-L4: -2.5 LAST ONE DONE LONG AGO Bone mineral density about the R hip (g/cm2): 0.633 Bone mineral density about the L hip (g/cm2): 0.676 T Score values are as follows: -----R Neck: -2.9 -----L Neck: -2.6 -----R Total: -3.4 -----L Total: -3.4 LAST ONE DONE LONG AGO IMPRESSION: Osteoporosis (T Score less than -2.5). There is increased fracture risk and therapy is usually indicated based on age. Re-Screen 1-2 years. NOTE: T-SCORE=SD OF THE YOUNG ADULT MEAN.
== END | disposition home or self-care (01) ==
LOC: RADBDWWP 10:20
PROVIDERS: ATTEND Internal Medicine Rheumatology
DX: M81.0 Age-related osteoporosis without current pathological fracture (principal)
CPT/HCPCS: 77080

== ENCOUNTER → 2021-08-14 | Outpatient (CLI) | payer MEDICARE, OTHER ==
--- NOTE | 2021-08-14 11:27 | US ---
EXAMINATION TYPE: US pelvic complete DATE OF EXAM: 08/14/2021 COMPARISON: NONE CLINICAL HISTORY: R10.84 Generalized abdominal pain. TECHNIQUE: Transabdominal (TA). Date of LMP: postmenopausal, no HRT EXAM MEASUREMENTS: Uterus: 6.8 x 2.7 x 3.9 cm Endometrial Stripe: 0.4 cm Right Ovary: not identified Left Ovary: not identified 1. Uterus: Retroverted wnl 2. Endometrium: wnl 3. Right Ovary: not identified 4. Left Ovary: not identified 5. Bilateral Adnexa: wnl 6. Posterior cul-de-sac: no free fluid Extensive bowel noted in bilateral adnexal regions. Patient refused transvaginal. IMPRESSION: 1. Normal limited pelvic ultrasound
--- NOTE | 2021-08-14 11:59 | US ---
EXAMINATION TYPE: US abdomen complete DATE OF EXAM: 08/14/2021 COMPARISON: NONE CLINICAL HISTORY: R10.84 Generalized abdominal pain. EPIGASTRIC PAIN EXAM MEASUREMENTS: Liver Length: 12.2 cm Gallbladder Wall: 0.5 cm CBD: 0.5 cm Spleen: 10.3 cm Right Kidney: 9.9 X 4.0 X 5.3 cm Left Kidney: 10.5 X 5.5 X 5.1 cm Pancreas: Visualized portions wnl Liver: wnl Gallbladder: thickened wall Evidence for sonographic Bee's sign: No CBD: wnl Spleen: wnl Right Kidney: No hydronephrosis or masses seen Left Kidney: No hydronephrosis or masses seen Upper IVC: wnl Abd Aorta: wnl IMPRESSION: 1. Thickened gallbladder wall. Some minimal fluid may be adjacent. Correlate for cholecystitis.
== END | disposition home or self-care (01) ==
LOC: RADUSWWP 10:16
PROVIDERS: ATTEND Internal Medicine
DX: R10.84 Generalized abdominal pain (principal); K82.8 Other specified diseases of gallbladder
CPT/HCPCS: 76700; 76856

== ENCOUNTER → 2022-05-15 | Outpatient (CLI) | payer MEDICARE, OTHER ==
--- NOTE | 2022-05-15 15:51 | XR ---
EXAMINATION TYPE: XR foot complete LT DATE OF EXAM: 05/15/2022 COMPARISON: NONE HISTORY: Pain TECHNIQUE: Three views are submitted. FINDINGS: The osseous structures are intact. There is no acute fracture or dislocation. Diffuse osteopenia w ith hypertrophic arthropathy of the first MTP. IMPRESSION: 1. No acute fracture or dislocation. If symptoms persist, follow-up exam in 7 to 10 days could be ob tained. 2. Diffuse osteopenia with first MTP joint hypertrophic arthropathy
== END | disposition home or self-care (01) ==
LOC: RADXRYALE 10:38
PROVIDERS: ATTEND Internal Medicine Rheumatology
DX: M79.672 Pain in left foot (principal); M89.472 Other hypertrophic osteoarthropathy, left ankle and foot

== ENCOUNTER → 2022-12-06 | Outpatient (CLI) | payer MEDICARE, OTHER ==
--- NOTE | 2022-12-06 10:26 | XR ---
EXAMINATION TYPE: XR foot complete LT DATE OF EXAM: 12/06/2022 CLINICAL HISTORY: pain TECHNIQUE: Frontal, lateral and oblique images of the left foot are obtained. COMPARISON: None. FINDINGS: There is no acute fracture/dislocation evident. The joint spaces appear within normal douglass its. The overlying soft tissue appears unremarkable. IMPRESSION: There is no acute fracture or dislocation. ICD 10 NO FRACTURE, INITIAL EVALUATION
--- NOTE | 2022-12-06 10:26 | XR ---
EXAMINATION TYPE: XR ankle complete LT DATE OF EXAM: 12/06/2022 COMPARISON: NONE HISTORY: Pain TECHNIQUE: 3 views of the left ankle are submitted for evaluation. FINDINGS: There is no evidence for fracture or dislocation. Ankle mortise is intact. Soft tissues are within normal limits. IMPRESSION: 1. No evidence for acute fracture.
== END | disposition home or self-care (01) ==
LOC: RADXRYALE 10:05
PROVIDERS: ATTEND Internal Medicine
DX: M25.572 Pain in left ankle and joints of left foot (principal)